=== PATIENT | female | born 1940 | race Caucasian/White ===

== ENCOUNTER 2020-05-25 20:48 | Emergency (ER) | payer MEDICARE, BC ==
[2020-05-25] MEDS ORDERED: Doxycycline 100 MG Tab PO ONE (20:49)
--- NOTE | 2020-05-25 22:00 | EDM.PDOC ---
ED HPI GENERAL MEDICAL PROBLEM - General Chief Complaint: Fever Stated Complaint: CELLULITUS Time Seen by Provider: 05/25/20 21:56 Source of Information: Reports: Patient History Limitations: Reports: No Limitations - History of Present Illness INITIAL COMMENTS - FREE TEXT/NARRATIVE: Redness ,pain,and warmth to the left leg since yesterday.Also has systemic symptoms of fever. Previously healthy. 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: Reports: Acetaminophen, NSAIDS, Other (see below) Other 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: cephalaxin TID starting 05/24/20 - Related Data Allergies Allergy/AdvReac Type Severity Reaction Status Date / Time sulfasalazine Allergy Rash Verified 05/25/20 20:56 [From Sulfazine] Home Meds: Home Meds Allopurinol [Zyloprim] 100 mg PO DAILY 05/25/20 [History] Aspirin 81 mg PO DAILY 05/25/20 [History] Furosemide [Lasix] 40 mg PO BID 05/25/20 [History] Glucosam/Chondr/Collagn/Hyalur [Glucosamine & Chondroitin Cap] 1 cap PO DAILY 05/25/20 [History] Losartan [Cozaar] 50 mg PO DAILY 05/25/20 [History] Metoprolol Tartrate 50 mg PO DAILY 05/25/20 [History] Potassium Chloride 10 meq PO BID 05/25/20 [History] Ubidecarenone [Coenzyme Q10] 10 mg PO DAILY 05/25/20 [History] Warfarin [Coumadin] 2.5 mg PO DAILY 05/25/20 [History] dilTIAZem HCL [Dilt-Xr] 240 mg PO DAILY 05/25/20 [History] Past Medical History HEENT History: Reports: Cataract Respiratory History: Reports: None Gastrointestinal History: Reports: None Genitourinary History: Reports: None 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 (See Below) 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 HOT PRESS OPERATOR History: hx of hysterectomy Musculoskeletal History: Reports: None Neurological History: Reports: None Psychiatric History: Reports: None Endocrine/Metabolic History: Reports: None Hematologic History: Reports: None Immunologic History: Reports: None Oncologic (Cancer) History: Reports: None Dermatologic History: Reports: Other (See Below) Other Dermatologic History: dermatitis - Infectious Disease History Infectious Disease History: Reports: None - Past Surgical History HEENT Surgical History: Reports: Cataract Surgery Cardiovascular Surgical History: Reports: Pacer Other Cardiovascular Surgeries/Procedures: PACEMAKER PLACED 8 YEARS AGO; AFIB Social & Family History - Tobacco Use Smoking Status *Q: Never Smoker ED ROS GENERAL - Review of Systems Review Of Systems: Comprehensive ROS is negative, except as noted in HPI. ED EXAM, SEPSIS - Physical Exam Exam: See Below Text/Narrative:: Red,warm leg,in the anterior aspect. Exam Limited By: No Limitations Course - Vital Signs Last Recorded V/S: Last Vital Signs Temp 99.3 F 05/25/20 21:07 Pulse 72 05/25/20 21:07 Resp 18 05/25/20 21:07 BP 147/67 H 05/25/20 21:07 Pulse Ox 94 L 05/25/20 21:07 - Orders/Labs/Meds Labs: Laboratory Tests 05/25/20 05/25/20 05/25/20 Range/Units 21:28 21:28 21:28 WBC 11.1 (4.5-12.0) X10-3/uL RBC 4.62 (3.23-5.20) x10(6)uL Hgb 14.2 (11.5-15.5) g/dL Hct 43.9 (30.0-51.3) % MCV 95.1 (80-96) fL MCH 30.7 (27.7-33.6) pg MCHC 32.3 (32.2-35.4) g/dL RDW 13.5 (11.5-15.5) % Plt Count 229 (125-369) X10(3)uL MPV 8.5 (7.4-10.4) fL Add Manual Diff Yes Neutrophils % (Manual) 91 H (46-82) % Band Neutrophils % 4 (0-6) % Lymphocytes % (Manual) 4 L (13-37) % Monocytes % (Manual) 1 L (4-12) % Sodium 139 (135-145) mmol/L Potassium 3.8 (3.5-5.3) mmol/L Chloride 105 (100-110) mmol/L Carbon Dioxide 28 (21-32) mmol/L BUN 17 (7-18) mg/dL Creatinine 1.2 H (0.55-1.02) mg/dL Est Cr Clr Drug Dosing 31.45 mL/min Estimated GFR (MDRD) 43 L (>60) BUN/Creatinine Ratio 14.2 (9-20) Glucose 112 (80-116) mg/dL Calcium 8.5 L (8.6-10.2) mg/dL Total Bilirubin 0.5 (0.1-1.3) mg/dL AST 29 H (5-25) IU/L ALT 37 H (12-36) U/L Alkaline Phosphatase 71 (56-112) IU/L C-Reactive Protein 26.8 H* (0.5-0.9) mg/dL Total Protein 6.9 (6.0-8.0) g/dL Albumin 3.0 L (3.2-4.6) g/dL Globulin 3.9 g/dL Albumin/Globulin Ratio 0.8 Departure - Departure Time of Disposition: 21:58 Disposition: Home, Self-Care 01 Condition: Good Clinical Impression: Cellulitis - Discharge Information Instructions: Cellulitis, Adult, [id number] Referrals: PCP,None [Primary Care Provider] - Forms: ED Department Discharge Additional Instructions: Doxycycline 100mg; 1 tab twice daily until gone. Follow up with Primary Physician as scheduled Sepsis Event Note (ED) - Evaluation Sepsis Screening Result: No Definite Risk - Focused Exam Vital Signs: Vital Signs Temp Pulse Resp BP Pulse Ox 05/25/20 21:07 99.3 F 72 18 147/67 H 94 L - Problem List & Annotations (1) Cellulitis SNOMED Code(s): 144277609 Code(s): L03.90 - CELLULITIS, UNSPECIFIED Status: Acute Current Visit: Yes Qualifiers: Site of cellulitis: extremity Laterality: left - Problem List Review Problem List Initiated/Reviewed/Updated: Yes - Assessment/Plan Plan: DC home on Cephalexin and Doxycycline. See PCP in 2 days
== END 2020-05-25 22:15 | disposition home or self-care (01) ==
LOC: FB.ED 20:48
DX: L03.116 Cellulitis of left lower limb (principal); Z88.2 Allergy status to sulfonamides; Z79.82 Long term (current) use of aspirin; Z79.01 Long term (current) use of anticoagulants; Z79.899 Other long term (current) drug therapy
CPT/HCPCS: 36415; 80053; 85025; 86140; 99284; A9270; 99283